=== PATIENT | male | born 1970 | race Two or more races ===

== ENCOUNTER 2017-01-16 09:02 | Emergency (ER) | payer MEDICAID ==
[~2017-01-16] VITALS: Ht 180.3 cm; Wt 140.6 kg
[2017-01-16 09:40] VITALS: BP 136/71
[2017-01-16] MEDS ORDERED: LIDOCAINE 2%HCL (LOCAL ANESTH.) INJ 20ML MDV ONE (10:35)
[2017-01-16] MEDS ORDERED: LIDOCAINE 2%HCL (LOCAL ANESTH.) INJ 20ML MDV IJ ONE (10:45)
[2017-01-16] MEDS ORDERED: NEOMYCIN-BACITRACIN-POLYM UNITDOSE PKG TOP OINT TOP ONE (11:15)
[2017-01-16] MEDS ORDERED: TETANUS-DIPTH-ACEL PERTUSSIS 0.5ML SYRG IM ONE (11:30)
== END 2017-01-16 11:27 | disposition home or self-care (01) ==
LOC: ER 09:02
DX: S61.217A Laceration without foreign body of left little finger without damage to nail, initial encounter (principal); X58.XXXA Exposure to other specified factors, initial encounter; Y93.89 Activity, other specified; Y99.8 Other external cause status; Y92.89 Other specified places as the place of occurrence of the external cause; Z23 Encounter for immunization
CPT/HCPCS: 12002; 90471; 90715

== ENCOUNTER 2020-03-06 20:23 | Emergency (ER) | payer MEDICAID, OTHER ==
[~2020-03-06] VITALS: Ht 180.3 cm; Wt 119.3 kg
[2020-03-06 22:29] VITALS: BP 107/51
[2020-03-06 22:39] LABS: Amphetamine Screen, Urine NEGATIVE (NEGATIVE); Barbiturate Scree,Urine NEGATIVE (NEGATIVE); Benzodiazephine Screen, Urine NEGATIVE (NEGATIVE); Cocaine Screen, Urine NEGATIVE (NEGATIVE); Opiate Scree,Urine NEGATIVE (NEGATIVE); Phencyclidine Screen, Urine NEGATIVE (NEGATIVE)
[2020-03-06] MEDS ORDERED: HYDROcodone-ACET 5/325MG TAB PO ONE (22:45)
[2020-03-06 22:46] LABS: Cannabinoid Screen, Urine POSITIVE (NEGATIVE)
== END 2020-03-06 23:13 | disposition home or self-care (01) ==
LOC: ER 20:34
DX: M25.572 Pain in left ankle and joints of left foot (principal); M54.5 Low back pain; V49.9XXA Car occupant (driver) (passenger) injured in unspecified traffic accident, initial encounter; Y93.89 Activity, other specified; Y92.89 Other specified places as the place of occurrence of the external cause; Y99.8 Other external cause status
CPT/HCPCS: 71045; 72131; 73610; 80307

== ENCOUNTER 2020-11-19 05:03 | Emergency (ER) | payer MEDICAID ==
[~2020-11-19] VITALS: Ht 180.3 cm; Wt 116.1 kg
[2020-11-19 05:12] VITALS: BP 107/65
== END 2020-11-19 09:52 | disposition left against medical advice (07) ==
LOC: ER 05:03
DX: R10.9 Unspecified abdominal pain (principal); Z53.21 Procedure and treatment not carried out due to patient leaving prior to being seen by health care provider

== ENCOUNTER 2021-11-02 06:37 | Emergency (ER) | payer MEDICAID ==
[~2021-11-02] VITALS: Ht 180.3 cm; Wt 117.9 kg
[2021-11-02] MEDS ORDERED: KETOROLAC TROMETH 60MG/2ML VIAL IM ONE (08:45)
[2021-11-02] MEDS ORDERED: IBUP800T27 PO (08:49)
[2021-11-02 09:55] VITALS: BP 130/56
== END 2021-11-02 10:41 | disposition home or self-care (01) ==
LOC: ER 06:37
DX: M17.12 Unilateral primary osteoarthritis, left knee (principal); M25.462 Effusion, left knee; Z79.1 Long term (current) use of non-steroidal anti-inflammatories (NSAID)
CPT/HCPCS: 73562; 93971; 96372; 99284; J1885

== ENCOUNTER 2023-02-24 10:01 | Emergency (ER) | payer MEDICAID ==
[~2023-02-24] VITALS: Ht 180.3 cm; Wt 128.9 kg
[~2023-02-24 10:01] MED LIST: CEPH-510 PO; CIP03OS RIGHTEYE; IBUP800T27 PO
[2023-02-24 11:16] VITALS: BP 102/64
[2023-02-24] MEDS ORDERED: ERY05OO OP (11:51)
== END 2023-02-24 11:57 | disposition home or self-care (01) ==
LOC: ER 10:01
DX: L25.9 Unspecified contact dermatitis, unspecified cause (principal); H10.31 Unspecified acute conjunctivitis, right eye; H00.11 Chalazion right upper eyelid; F12.10 Cannabis abuse, uncomplicated; Z88.1 Allergy status to other antibiotic agents; Z88.6 Allergy status to analgesic agent

== ENCOUNTER 2023-08-28 21:57 | Emergency (ER) | payer MEDICAID ==
[~2023-08-28] VITALS: Ht 180.3 cm; Wt 128.5 kg
[~2023-08-28 21:57] MED LIST changes: +ERY05OO OP; +IBUP-1456 PO; -IBUP800T27 PO; +PER60TP TOP; +TOB03OS OP
[2023-08-28 22:12] VITALS: BP 114/55; PULSE 70; RESP 18; O2SAT 97
== END 2023-08-29 01:03 | disposition left against medical advice (07) ==
LOC: ER 21:57
DX: H57.89 Other specified disorders of eye and adnexa (principal); Z76.0 Encounter for issue of repeat prescription; Z53.21 Procedure and treatment not carried out due to patient leaving prior to being seen by health care provider

== ENCOUNTER 2024-09-25 16:53 | Emergency (ER) | payer MEDICAID ==
[~2024-09-25] VITALS: Ht 177.8 cm; Wt 100.0 kg
[2024-09-25 16:53] VITALS: BP 140/74; PULSE 63; RESP 16; O2SAT 96
[2024-09-25] MEDS: KETOROLAC TROMETH 30 MG/ML 1ML VIAL IM ONE (17:30)
[2024-09-25] MEDS: HYDROcodone-ACET 10/325MG TAB PO ONE (17:30)
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
[2024-09-25 18:08] LABS: Basophils # (auto) 0 10 ^3/uL (0-0.2); Basophils % (auto) 0.3 % (0.0-2.0); Eosinophils # (auto) 0 10 ^3/uL (0-0.8); Eosinophils % (auto) 0.1 % (0.0-7.0); Hematocrit 48.7 % (41.0-53.0); Hemoglobin 16.2 g/dL (13.5-17.5); Lymphocytes # (auto) 1.6 10 ^3/uL (0.4-5.4); Mean Corpuscular Hemoglobin 32.7 pg (28.0-32.0); Mean Corpuscular Hgb Conc. 33.3 g/dL (32.0-36.0); Mean Corpuscular Volume 98.2 fL (80.0-100.0); Monocytes # (auto) 0.9 10 ^3/uL (0-1.3); Monocytes % (auto) 6.8 % (0.0-12.0); Neutrophils # (auto) 10.7 10 ^3/uL (1.6-8.6); Neutrophils % (auto) 80.8 % (37.0-80.0); Nucleated Red Blood Cells % 0.1 %; Platelet Count (auto) 338 10^3/uL (140-450); Red Blood Cells 4.96 10^6/uL (4.5-5.90); Red Cell Distribution Width 14.5 % (11.8-14.3); White Blood Cell 13.2 10^3/uL (4.4-10.8)
[2024-09-25 18:15] LABS: Chloride 107 mmol/L (98-107); Potassium 4.3 mmol/L (3.5-5.1); Sodium 142 mmol/L (136-145)
[2024-09-25 18:16] LABS: Anion Gap 8 (5-15); Carbon Dioxide 27 mmol/L (20-31)
[2024-09-25 18:17] LABS: Calcium 10.1 mg/dL (8.7-10.4)
[2024-09-25 18:21] LABS: Glucose 98 mg/dL (74-106)
[2024-09-25 18:22] LABS: BUN/Creatinine Ratio 12.4 (10.0-20.0); Blood Urea Nitrogen 12 mg/dL (9-23)
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
[2024-09-25] MEDS ORDERED: HYDR-4902 PO (19:15)
== END 2024-09-25 20:38 | disposition home or self-care (01) ==
LOC: ER 16:53 → EDBD 16:53 → ER 20:38
DX: S20.212A Contusion of left front wall of thorax, initial encounter (principal); F41.9 Anxiety disorder, unspecified; Z79.899 Other long term (current) drug therapy; V89.2XXA Person injured in unspecified motor-vehicle accident, traffic, initial encounter; Y93.I9 Activity, other involving external motion; Y92.488 Other paved roadways as the place of occurrence of the external cause; Y99.8 Other external cause status
CPT/HCPCS: 36415; 71046; 80048; 84484; 85025